=== PATIENT | female | born 1960 | race Two or more races ===

== ENCOUNTER → 2017-08-01 | Outpatient (CLI) | payer BC, OTHER ==
--- NOTE | 2017-08-02 17:13 | REP ---
RIGHT RIBS WITHOUT PA CHEST: 08/01/2017. Comparison: 10/25/2011. Clinical history: Right-sided rib pain. Pain near the lower ribs. Findings: Five views show posterior rib articulations grossly intact. Visualized spine, clavicle, scapula and humerus without fracture. There are AC and glenohumeral joint degenerative changes. No pleural effusion, lateral pleural thickening, apical pneumothorax or other acute finding. Impression: 1. No visible or displaced rib fracture, focal rib lesion, posterior rib articular abnormality, effusion or pneumothorax. No other finding in the chest visible on this study including the spine, clavicle or shoulder except for some minor degenerative change of right AC joint Signed by Lai Larson MD 08/02/2017 05:30 P
== END ==
LOC: M LRY 19:15
PROVIDERS: ATTEND Physician Assistant
DX: R07.81 Pleurodynia (principal)

== ENCOUNTER 2020-02-23 08:18 | Emergency (ER) | payer BC, OTHER ==
[~2020-02-23] VITALS: Ht 172.7 cm; Wt 69.7 kg
[2020-02-23] MEDS ORDERED: ACET-683 PO (08:27)
[2020-02-23] MEDS ORDERED: NS 1,000 ML IV ONE (09:15)
[2020-02-23] MEDS ORDERED: ONDANSETRON 4MG/2ML VIAL IV ONE (09:15)
[2020-02-23 09:38] LABS: EOS % 0.2 % (0.0-3.0); HEMATOCRIT 42.3 % (36.0-47.0); HEMOGLOBIN 13.8 g/dl (12.0-15.5); LYMPH # 1.2 10^3/uL (1.5-5.0); LYMPH % 21.5 % (24.0-44.0); MEAN CORPUSCULAR HEMOGLOBIN 30.1 pg (27.0-33.0); MEAN CORPUSCULAR HGB CONC 32.6 g/dl (32.0-36.5); MEAN CORPUSCULAR VOLUME 92.4 fl (80.0-96.0); MONO # 0.4 10^3/uL (0.0-0.8); MONO % 6.4 % (0.0-5.0); NEUTROPHILS # 3.9 10^3/uL (1.5-8.5); NEUTROPHILS % 71.5 % (36.0-66.0); PLATELET COUNT, AUTOMATED 201 10^3/uL (150-450); RED BLOOD COUNT 4.58 10^6/uL (4.00-5.40); WHITE BLOOD COUNT 5.5 10^3/uL (4.0-10.0)
[2020-02-23 10:02] LABS: ALBUMIN 3.6 GM/DL (3.2-5.2); ALT/SGPT 31 U/L (12-78); BILIRUBIN,DIRECT < 0.1 MG/DL (0.0-0.2); BILIRUBIN,TOTAL 0.6 MG/DL (0.2-1.0); BLOOD UREA NITROGEN 9 MG/DL (7-18); CALCIUM LEVEL 8.8 MG/DL (8.5-10.1); CARBON DIOXIDE LEVEL 28 MEQ/L (21-32); CHLORIDE LEVEL 103 MEQ/L (98-107); CREATININE FOR GFR 0.81 MG/DL (0.55-1.30); GLOMERULAR FILTRATION RATE > 60.0 (>51); GLUCOSE, FASTING 105 MG/DL (70-100); LIPASE 138 U/L (73-393); POTASSIUM SERUM 5.3 MEQ/L (3.5-5.1); SODIUM LEVEL 137 MEQ/L (136-145); TOTAL PROTEIN 8.2 GM/DL (6.4-8.2)
[2020-02-23 11:40] VITALS: BP 106/70
[2020-02-23 12:29] LABS: CHLAMYDIA DNA AMPLIFICATION NEGATIVE (NEGATIVE); GC DNA AMPLIFICATION NEGATIVE (NEGATIVE)
--- NOTE | 2020-02-23 14:39 | REP ---
AP PORTABLE CHEST: 02/23/2020. COMPARISON: 10/25/2011. CLINICAL HISTORY: Abnormal breath sounds left lower chest. Upper respiratory symptoms. FINDINGS: Lungs are well inflated with the CP angles sharply defined. There is no pleural effusion, lateral pleural thickening, or apical scarring. There is subtle patchy increased density above the central left diaphragm that may reflect some subsegmental atelectasis or early infiltrate. Heart is not enlarged. The aorta and airway intact. No mediastinal or hilar abnormality seen. Bones show no acute or focal lesion. IMPRESSION: 1. Subtle patchy atelectasis or infiltrate just above the central left diaphragm, but no effusion, dense consolidation with air bronchograms, mass, cardiomegaly, or edema. Electronically Signed by Lai Larson MD 02/23/2020 07:03 P
== END 2020-02-23 11:50 | disposition home or self-care (01) ==
LOC: EEVIPCON 08:18 → M ED 08:18
DX: J98.11 Atelectasis (principal); U07.1 COVID-19; Z78.0 Asymptomatic menopausal state
CPT/HCPCS: 71045; 80048; 80076; 81001; 83605; 83690; 85025; 87210; 87661; 96361; 96374; 99284; J2405; U0002

== ENCOUNTER → 2021-10-08 | Outpatient (CLI) | payer BC, OTHER ==
[~2021-10-08] MED LIST: ACET-683 PO
== END ==
LOC: M WHC 08:48
PROVIDERS: ATTEND Obstetrics & Gynecology
DX: Z12.31 Encounter for screening mammogram for malignant neoplasm of breast (principal)

== ENCOUNTER → 2022-12-08 | Outpatient (CLI) | payer BC, OTHER | LOC: M WHC 08:12 | PROVIDERS: ATTEND Nurse Practitioner Family | DX: Z12.31 Encounter for screening mammogram for malignant neoplasm of breast (principal) ==

== ENCOUNTER 2023-04-26 08:44 | Day surgery (SDC) | payer BC, OTHER ==
[~2023-04-26] VITALS: Ht 172.7 cm; Wt 72.5 kg
[~2023-04-26 08:44] MED LIST changes: +NS 1,000 ML IV ONE
[2023-04-26 09:40] VITALS: TEMP 98.1
[2023-04-26 09:55] VITALS: BP 133/64; O2SAT 99
== END 2023-04-26 10:10 | disposition home or self-care (01) ==
LOC: M OPP 08:44
PROVIDERS: ATTEND Surgery
DX: R19.5 Other fecal abnormalities (principal); K64.0 First degree hemorrhoids; M19.90 Unspecified osteoarthritis, unspecified site

== ENCOUNTER → 2023-12-13 | Outpatient (CLI) | payer BC ==
[~2023-12-13] MED LIST changes: -NS 1,000 ML IV ONE
== END ==
LOC: M WHC 07:59
PROVIDERS: ATTEND Nurse Practitioner Family
DX: Z12.31 Encounter for screening mammogram for malignant neoplasm of breast (principal)

== ENCOUNTER → 2024-12-17 | Outpatient (CLI) | payer BC | LOC: M WHC 08:47 | PROVIDERS: ATTEND Nurse Practitioner Family | DX: Z12.31 Encounter for screening mammogram for malignant neoplasm of breast (principal) ==